=== PATIENT | female | born 1985 | race African-American/Black ===

== ENCOUNTER 2021-11-25 13:29 | Inpatient (IN) | payer BC, MEDICAID ==
[~2021-11-25] VITALS: Ht 160 cm; Wt 62.1 kg
[~2021-11-25 13:29] MED LIST: IMIT50 PO; MECL-159 PO; PROP60CA37; VITS
[2021-11-25] MEDS ORDERED: ONDANSETRON HCL 4MG/2ML INJ IV STA (13:56)
[2021-11-25] MEDS ORDERED: SODIUM CHLORIDE 0.9% 1,000 ML IV ONE (14:00)
[2021-11-25 17:42] LABS: BASOPHILS % 1.4 % (0.0-2.0); EOSINOPHILS % 3.1 % (0.0-5.0); HEMATOCRIT. 38.8 % (36.0-48.0); HEMOGLOBIN. 13.1 g/dL (12.0-16.0); LYMPHOCYTES % 38.9 % (20.0-50.0); MEAN CORPUSCULAR HEMOGLOBIN 31.2 pg (28.0-32.0); MEAN CORPUSCULAR VOLUME 92.4 fL (81.0-99.0); MONOCYTES % 13.4 % (2.0-8.0); NEUTROPHILS % 43.2 % (40.0-76.0); PLATELET 282 x1000/uL (130-400); RED BLOOD CELL COUNT 4.19 mill/uL (4.2-5.4); RED CELL DISTRIBUTION WIDTH 13.1 % (11.6-14.6)
[2021-11-25 17:56] LABS: CHLORIDE 107 mEq/L (98-107)
[2021-11-25 18:12] LABS: HCG SCREEN NEGATIVE
[2021-11-25 18:55] LABS: CLARITY URINE CLEAR (CLEAR); COLOR URINE YELLOW (YELLOW); KETONES URINE NEGATIVE (NEGATIVE); LEUKOCYTE ESTERASE URINE NEGATIVE (NEGATIVE); NITRITE URINE NEGATIVE (NEGATIVE); OCCULT BLOOD URINE 3+ (NEGATIVE); PH URINE 5.5 (4.5-8.0); PROTEIN URINE NEGATIVE (NEGATIVE); SPECIFIC GRAVITY URINE 1.021 (1.005-1.030); UROBILINOGEN URINE 0.2 E.U./dL (0.2-1.0)
[2021-11-25] MEDS ORDERED: IOHEXOL-300 100 ML BOTTLE ONE (19:35)
[2021-11-25] MEDS ORDERED: MORPHINE SULFATE 4 MG/ML CPJ (NOT FOR IM USE) IV ONE (20:00)
[2021-11-26] MEDS ORDERED: KETOROLAC 30MG/ML VIAL IV ONE (00:15)
[2021-11-26] MEDS ORDERED: ONDANSETRON HCL 4MG/2ML INJ IV ONE (01:00)
[2021-11-26 09:32] VITALS: BP 127/82
[2021-11-26] MEDS ORDERED: ACETAMINOPHEN 325MG TABLET PO PRN (11:00)
[2021-11-26] MEDS: KETOROLAC 15MG/ML VIAL IV PRN ×2 (12:51→19:58)
[2021-11-26] MEDS: ONDANSETRON HCL 4MG/2ML INJ IV PRN (19:58)
[2021-11-26 20:00] VITALS: BP 127/76
[2021-11-26] MEDS: DEXT 5%/0.45% NACL 1000ML 1,000 ML IV SCH (23:16)
[2021-11-27] VITALS: BP 104/54
[2021-11-27 04:00] VITALS: BP 97/62
[2021-11-27 08:00] VITALS: BP 127/89
[2021-11-27 09:53] LABS: HEMATOCRIT. 37.6 % (36.0-48.0); MEAN CORPUSCULAR HEMOGLOBIN 31.7 pg (28.0-32.0); MEAN CORPUSCULAR VOLUME 91.5 fL (81.0-99.0); MEAN PLATELET VOLUME 9.3 fl (7.4-10.4); PLATELET 227 x1000/uL (130-400); RED BLOOD CELL COUNT 4.11 mill/uL (4.2-5.4); RED CELL DISTRIBUTION WIDTH 12.9 % (11.6-14.6)
[2021-11-27 10:33] LABS: CHLORIDE 108 mEq/L (98-107)
[2021-11-27 12:00] VITALS: BP 105/70
[2021-11-27] MEDS: KETOROLAC 15MG/ML VIAL IV PRN ×2 (13:40→20:22)
[2021-11-27 16:00] VITALS: BP 140/85
[2021-11-27] MEDS: DEXT 5%/0.45% NACL 1000ML 1,000 ML IV SCH (18:06)
[2021-11-27 20:00] VITALS: BP 127/84
[2021-11-27] MEDS: ONDANSETRON HCL 4MG/2ML INJ IV PRN (20:23)
[2021-11-28] VITALS: BP 119/71
[2021-11-28 00:23] LABS: PLATELET ESTIMATE NORMAL
[2021-11-28] MEDS: DEXT 5%/0.45% NACL 1000ML 1,000 ML IV SCH (03:07)
[2021-11-28 04:00] VITALS: BP 108/70
[2021-11-28 08:00] VITALS: BP_SYST 129; BP_SYST 159; BP_DIAS 60; BP_DIAS 90
[2021-11-28 12:00] VITALS: BP 129/90
[2021-11-28] MEDS: ONDANSETRON HCL 4MG/2ML INJ IV PRN (13:13)
[2021-11-28] MEDS: KETOROLAC 15MG/ML VIAL IV PRN (13:23)
[2021-11-28 16:00] VITALS: BP 138/87
[2021-11-28 16:07] LABS: HEMATOCRIT. 40.5 % (36.0-48.0); HEMOGLOBIN. 13.3 g/dL (12.0-16.0); MEAN CORPUSCULAR HEMOGLOBIN 30.8 pg (28.0-32.0); MEAN CORPUSCULAR VOLUME 93.9 fL (81.0-99.0); MEAN PLATELET VOLUME 9.4 fl (7.4-10.4); PLATELET 250 x1000/uL (130-400); RED BLOOD CELL COUNT 4.32 mill/uL (4.2-5.4); RED CELL DISTRIBUTION WIDTH 13.3 % (11.6-14.6)
[2021-11-28 16:13] LABS: CHLORIDE 108 mEq/L (98-107)
[2021-11-28 20:00] VITALS: BP 129/85
[2021-11-28 21:32] LABS: PLATELET ESTIMATE NORMAL
[2021-11-29] VITALS: BP 125/79
[2021-11-29 04:00] VITALS: BP 134/80
[2021-11-29 08:00] VITALS: BP 104/65
[2021-11-29 12:00] VITALS: BP 129/93
[2021-11-29] MEDS ORDERED: LIDOCAINE HCL 1% 10 MG/ML 10ML VIAL ONE (13:54)
[2021-11-29 16:00] VITALS: BP 132/86
[2021-11-29] MEDS: ONDANSETRON HCL 4MG/2ML INJ IV PRN (16:19)
[2021-11-29] MEDS: KETOROLAC 15MG/ML VIAL IV PRN (16:25)
[2021-11-29] MEDS ORDERED: IOHEXOL-300 100 ML BOTTLE ONE (16:36)
[2021-11-29] MEDS ORDERED: TRAMADOL 50MG TABLET PO PRN (19:15)
[2021-11-29 20:00] VITALS: BP 142/76
[2021-11-29] MEDS ORDERED: NALOXONE HCL 0.4MG/ML VIAL IV PRN (21:30)
[2021-11-30] VITALS: BP 138/84
[2021-11-30 04:00] VITALS: BP 96/60
[2021-11-30 06:56] LABS: HEMATOCRIT. 33.6 % (36.0-48.0); HEMOGLOBIN. 11.5 g/dL (12.0-16.0); MEAN CORPUSCULAR HEMOGLOBIN 31.5 pg (28.0-32.0); MEAN CORPUSCULAR VOLUME 92.1 fL (81.0-99.0); MEAN PLATELET VOLUME 8.8 fl (7.4-10.4); PLATELET 219 x1000/uL (130-400); RED BLOOD CELL COUNT 3.65 mill/uL (4.2-5.4); RED CELL DISTRIBUTION WIDTH 12.5 % (11.6-14.6)
[2021-11-30 07:22] LABS: CHLORIDE 105 mEq/L (98-107)
[2021-11-30] MEDS ORDERED: POTASSIUM CHLORIDE 20MEQ TABLET SR PO SCH (09:00)
[2021-11-30 09:50] LABS: PLATELET ESTIMATE NORMAL
[2021-11-30 12:00] VITALS: BP 107/76
[2021-11-30] MEDS ORDERED: METOCLOPRAMIDE HCL 10MG/2ML VIAL IV SCH (14:45)
[2021-11-30] MEDS ORDERED: DOCUSATE SODIUM 100MG CAPSULE PO SCH (14:45)
[2021-11-30 16:00] VITALS: BP 123/78
== END 2021-11-30 18:52 | disposition home or self-care (01) | DRG 282 ==
LOC: ER 13:29 → 6EST 11-26 01:01
PROVIDERS: ADMIT Hospitalist; ATTEND Hospitalist
PROC: 05HY33Z Insertion of Infusion Device into Upper Vein, Percutaneous Approach (ICD-10-PCS; principal; 2021-11-29)
PROC: B54MZZA Ultrasonography of Right Upper Extremity Veins, Guidance (ICD-10-PCS; 2021-11-29)
DX: K85.90 Acute pancreatitis without necrosis or infection, unspecified (principal); K59.00 Constipation, unspecified; Z20.822 Contact with and (suspected) exposure to COVID-19
CPT/HCPCS: 36415; 71045; 74177; 76700; 76830; 76856; 76937; 80048; 80053; 81003; 84703; 85025; 87426; 99285; C1725; C1893; J1885; J2270; J2405; J2765; J3490; J7030; Q9967